=== PATIENT | female | born 1960 | race Caucasian/White ===

== ENCOUNTER 2018-09-14 06:53 | Day surgery (SDC) | payer BC ==
[2018-09-14] MEDS ORDERED: ONDANSETRON HCL IV 4 MG/2 ML VIAL IVP ONE (06:54)
[2018-09-14] MEDS ORDERED: LIDOCAINE 2% MDV (20MG/ML) 20ML VIAL IV ONE (06:54)
[2018-09-14] MEDS ORDERED: FENTANYL PF 100MCG/2ML VIAL IV ONE (06:54)
[2018-09-14] MEDS ORDERED: PROPOFOL 10 MG/ML VIAL IV ONE (06:54)
[2018-09-14] MEDS ORDERED: MIDAZOLAM HCL 2MG/2ML VIAL IV ONE (06:54)
[2018-09-14] MEDS ORDERED: RINGERS SOLUTION,LACTATED 1,000 ML IV ONE (09:01)
[2018-09-14] MEDS ORDERED: LIDOCAINE 1% W/EPI 1:100,000 MDV 20 ML VIAL SQ ONE (09:08)
[2018-09-14] MEDS ORDERED: DEXAMETHASONE PRESERVATIVE FREE 10MG/ML VIAL SQ ONE (09:08)
[2018-09-14] MEDS ORDERED: BUPIVACAINE 0.5% W/EPI MPF 30 ML VIAL SQ ONE (09:08)
[2018-09-14] MEDS ORDERED: HYDROCODONE/APAP 7.5/325MG TABLET PO ONE (09:56)
--- NOTE | 2018-09-16 15:30 | Operative Note ---
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 OPERATION: Radiofrequency rhizotomy of bilateral cervical facets 4-5, 5-6, 6-7. INDICATIONS: This patient presents with a history of fusion cervical spine and primary neck pain. Examination shows diffuse tenderness of the cervical spine. Range of motion does produce pain to the neck with extension. Diagnostics show multilevel surgical involvement. There is diffuse spondylitic change. A facet series 75% relief. Due to the failure of therapy, success of facet series, patient presents for rhizotomy for more long-term relief. PROCEDURE: Intravenous line, vital sign monitoring, IV sedation, prepped and draped in sterile technique. Under imaging, cervical facets 4-5, 5-6, and 6-7 were identified and marked bilaterally. Skin infiltrated. A 22-gauge rhizotomy cannula positioned. Stimulation trial was conducted. Rhizotomy burn 80 degrees 90 seconds at each of the sites bilaterally. All areas cleaned. Topical antibiotic and sterile dressing applied. Will monitor and evaluate. CC: Dr. Stew DUNN
== END 2018-09-14 10:10 | disposition home or self-care (01) ==
LOC: SUR 06:53
PROVIDERS: ATTEND Pain Medicine Interventional Pain Medicine
DX: M96.1 Postlaminectomy syndrome, not elsewhere classified (principal); M47.812 Spondylosis without myelopathy or radiculopathy, cervical region; I10 Essential (primary) hypertension; M32.9 Systemic lupus erythematosus, unspecified; G47.33 Obstructive sleep apnea (adult) (pediatric); F17.210 Nicotine dependence, cigarettes, uncomplicated
CPT/HCPCS: J2405; J7120